=== PATIENT | female | born 1990 | race Caucasian/White ===

== ENCOUNTER 2024-11-19 18:28 | Emergency (ER) | payer BC, SELFPAY ==
[2024-11-19 18:34] VITALS: BP 121/81; PULSE 87; RESP 16; TEMP 37.3; O2SAT 98; BMI 21.3
--- NOTE | 2024-11-19 18:57 | ED.GENADULT ---
HPI - General Adult General Chief complaint: Abdominal Pain Stated complaint: gall bladder issues Time Seen by Provider: 11/19/24 18:29 History of Present Illness HPI narrative: [age] year white female who had an ultrasound today that showed gallbladder contraction, no stones normal common bile duct. This is from the report from her align cara PA. The patient had lab studies yesterday that looked unremarkable for any infection or liver function abnormality. Patient reports today she had some burning after ultrasound in her upper quadrant but that seems improved. She has had no nausea, vomiting, dysuria frequency. Chest pain or shortness of breath. She was told to consult with a general surgeon. Related Data Home Medications ?Medication ?Instructions ?Recorded ?Confirmed No Known Home Medications 11/19/24 11/19/24 Allergies Allergy/AdvReac Type Severity Reaction Status Date / Time No Known Drug Allergies Allergy Verified 11/19/24 18:33 Review of Systems Status of ROS: Reports: 6 or more systems reviewed and unremarkable except as noted in History and below Exam Narrative: Exam Narrative: Objective vital signs show temp 99.2? other vital signs unremarkable Alert orient x3 no distress HEENT shows no scleral icterus Abdomen is benign soft nontender no right upper quadrant tenderness no right lower quadrant tenderness no rebound or palpable masses in her abdomen. Extremities good motion, patient is ambulatory without difficulty. Const: Vital Signs, click to edit/add: Vital Signs - 24 hr 11/19/24 18:34 Temperature 99.2 F Pulse Rate [Pulse Oximeter] 87 Respiratory Rate 16 Blood Pressure [Ri ght Upper Arm] 121/81 Pulse Oximetry 98 Oxygen Delivery Me thod Room Air Course Vital Signs Vital signs: Initial Vital Signs Temperature 99.2 F 11/19/24 18:34 Temperature Source Temporal Artery Scan 11/19/24 18:34 Pulse Rate 87 11/19/24 18:34 Respiratory Rate 16 11/19/24 18:34 Blood Pressure 121/81 11/19/24 18:34 Blood Pressure Mean 94 11/19/24 18:34 Pulse Oximetry 98 11/19/24 18:34 Oxygen Delivery Method Room Air 11/19/24 18:34 Vital Signs Temperature 99.2 F 11/19/24 18:34 Pulse Rate 87 11/19/24 18:34 Respiratory Rate 16 11/19/24 18:34 Blood Pressure 121/81 11/19/24 18:34 Pulse Oximetry 98 11/19/24 18:34 Oxygen Delivery Method Room Air 11/19/24 18:34 Temperature 99.2 F 11/19/24 18:34 Pulse Rate 87 11/19/24 18:34 Respiratory Rate 16 11/19/24 18:34 Blood Pressure 121/81 11/19/24 18:34 Pulse Oximetry 98 11/19/24 18:34 Oxygen Delivery Method Room Air 11/19/24 18:34 Medical Decision Making MDM Narrative Medical decision making narrative: [age] year white female with a gallbladder ultrasound today did show some gallbladder contraction, no stones, normal common bile duct. Labs yesterday looked unremarkable for infection or liver function abnormality. This was reviewed through her align a chart on her phone with her consent. At this time I would recommend the following. I do not think additional lab studies necessary at this time given her benign abdomen. She should consult with General surgery in this will be set up for her. She can take Tylenol as needed for discomfort if this occurs. We will give her the number for our general surgery clinic here in [place]. If she has problems concerns in the interim she can return back to the hospital. And would be seen in the ER. She was comfortable this plan. Discharge Plan Discharge Clinical Impression: Abdominal pain Patient Disposition: Home, Self-Care Condition: Stable Additional Instructions: Light diet, low-fat, Tylenol as needed, general surgery consult recommended, you can call the clinic with your number that your given tonight. Return to ED as needed. Activity Level: No Restrictions Discharge Diet: Low Fat/Low Cholesterol Prescriptions: No Action No Known Home Medications Stand Alone Forms: [employer] Info Instructions
--- OUTSIDE RECORDS SUMMARY | 2024-11-19 19:11 | XMS_ITS | Clinical Summary ---
Author Organization [facility] Address [address] , [address] [place] [address] Phone Care Team Providers Care Exchange Operator Name Role [facility] Unavailable Unava ilable Conditions or Problems Problem Name Problem Code Onset Date Status Entry Date Provider Comment Standard Description Annotate Shoulder pain, left [id number] (SNOMED CT) 06/07 Active 06/07 Goldie Campeau Pain of left shoulder joint Shoulder pain [id number] (SNOMED CT) 06/07 Inactive 06/07 Jorge Chawla MD Pain of shoulder region Hand pain, left [id number] (SNOMED CT) 06/07 Active 06/07 Jorge Chawla MD Hand pain Medications No information available. Medications Administered No information available. Allergies, Adverse Reactions, Alerts No information available. Results Date Name Value Unit Range Flag Description Internal Other: Authorizatio n - OBS [email or web address] Yes Authoriza tion: Release of Information - Authorize [facility] - Payment and Healthcare Operations ROIAUTHOTHER Yes Authoriz ation: Release of Information - Authorize Others/Insurance - Payment and Healthcare Operations HIECONSENT Yes Consent To Release information to the Health Information Exchange (HIE) [email or web address] Yes Authorizat ion: Authorization for [facility] to leave messages, voicemail, send text messages, send emails AUTHRELHCARE Yes Authoriz ation: Release/Retrieval of Information to/from Healthcare Facilities, Pharmacy Benefit Payers and Providers [email or web address] Yes Authoriz ation: Notice of privacy practices AUTHBENEFIT Yes Authoriza tion: Assignment of Benefits and Payment Agreement Plan of Care No information available. Procedures Code Procedure Name Date Entry Date [id number] Nerve Conduction 7-8 studies CPT-38579 EMG with NCS (5+ muscles) - 1 limb 06/07 Vital Signs No information available. Immunizations No information available. Advance Directives No information available.
--- OUTSIDE RECORDS SUMMARY | 2024-11-19 19:12 | XMS_ITS | Clinical Summary ---
Author Organization [employer] [facility] Address [address] [place] [address] Care Team Providers Care Administrative Analyst Name Role Phone Irma Patel MD Primary Care Provider + Allergies Active Allergy Reactions Criticality Noted Date Comments Pineapple Edema 07/07/2014 Throat swelling, vomitng, diarrhea Medications LORazepam 0.5 mg tabIndications: Other mixed anxiety disorders Take 0.5-1 Tablets (0.25-0.5 mg) by mouth 2 times daily if needed for Anxiety. 30 Tablet 10/01/2024 Active omeprazole 20 mg tabletIndicatio ns:Abdominal pain, RUQ (right upper quadrant) Take 1 Tablet (20 mg) by mouth once daily before a meal. 60 Tablet 11/17/2024 Active Active Problems Problem Noted Date Diagnosed Date Family history of thyroid disease 09/07/2015 Anxiety disorder 01/14/2013 Allergic rhinitis, cause unspecified 03/28/2006 Overview (03/28/2006): Allergic to pollen & bob Resolved Problems Problem Noted Date Diagnosed Date Resolved Date Uses control 02/25/2013 8 Anemia due to acute blood loss 02/09/2011 03/30/2011 Arrest of dilation, delivere d, current hospitalization 02/06/2011 03/30/2011 delivery, without m ention of indication, unspecified as to episode of care(669.70) 02/06/2011 03/30/2011 Anemia of mother, complicati ng , childbirth, or the puerperium, unspecified as to episode of care(648.20) 12/28/2010 03/30/2011 Supervision of normal first 09/22/2010 03/30/2011 GERD (gastroesophageal reflux disease) 09/09/2009 03/30/2011 Encounters Date Type Department Care Team Description 11/19/2024 7:30 AM CDT Ancillary Procedure [facility] [address] [place] [address] Arrived 11/19/2024 Orders Only [facility] [address] [place] [address] Camelia Bryan PA <No scans attached> 11/18/2024 Travel 11/17/2024 12:50 PM CDT Office Visit [facility] [address] [place] [address] Camelia Bryan PA Abdominal Pain (Stomach burning and pain x 5 days, starts in the mid section and radiates to right side. Feels tightening. Happens after eating. Chills with burning. ) 11/17/2024 Travel from Last 3 Months Immunizations Immunization Administration Dates Next Due Human Papilloma Virus Vaccine 04/08/2007, 007,09/26/2006 INFLUENZA, IIV3 PF (AGE >= 6 MO) 01/29/2024 Influenza, IIV3 (Age >=3 years) 02/11/2017,01/16,01/28/2013,01/11/2011 Influenza, IIV4 03/16/2022,02/26/2016 Tdap 11/09/2021,02/08/2011 Family History Medical History Relation Name Comments Good Health Father Arthritis Maternal Grandfather Cancer Maternal Grandmother lung Hyperlipidemia Maternal Grandmother Arthritis Mother Bon Marroquin Unknown Mother Bon Marroquin MIGRAINE Arthritis Other 2nd cousin with rheumatoid arthritis Relation Name Status Comments Father Maternal Grandfather Maternal Grandmother Mother Bon Marroquin Other Social History Tobacco Use Types Packs/Day Years Used Date Smoking Tobacco: Never Smokeless Tobacco: Never Tobacco Cessation:Counseling Given: Yes Alcohol Use Standard Drinks/Week Comments No 0 (1 standard drink = 0.6 oz pur e alcohol) PHQ-2 Answer Date Recorded PHQ-2 TOTAL SCORE 0 11/17/2024 Exercise Vital Sign Answer Date Recorde d On average, how many days pe r week do you engage in moderate to strenuous exercise (like a brisk walk)? 4 days 01/21/2020 On average, how many minutes do you engage in exercise at this level? 30 min 01/21/2020 Social Connections Answer Date Recorded Do you often feel lonely or isolated from those around you? 0 01/25/2024 Financial Resource Strain Answer Date R ecorded Difficulty of Paying Living Expenses 3 01/25/2024 Difficulty of Paying Living Expenses Not on file 01/25/2024 Food Insecurity Answer Date Recorded Do you worry your food will run out before you are able to buy more? 1 01/25/2024 Transportation Needs Answer Date Record ed Does lack of transportation keep you from medica l appointments? 1 01/25/2024 Does lack of transportation keep you from work, meetings or getting things that you need? 1 01/25/2024 Housing Stability Answer Date Recorded What is your housing situation today? 1 01/25/2024 Utilities Answer Date Recorded Do you have trouble paying f or utilities (for example, heat, electricity, water, phone)? 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 Gender Identity Not on file Sexual Orientation Not on file Occupation Industry Job Start Date Job End Date [employer] Not on file Not on file Not on file Obstetrics History Para Term AB IAB SAB Ectopic Multiple Livin g Live Births 1 1 1 0 0 0 0 0 0 1 1 Date Outcome GA Total Labor Labor/2nd/3rd Weight Sex Type Anes PTL Sridevi A1 A5 Name Clin 2010 Term 39w 0d 3.81 kg (8 lb 6.5 oz) F CS-Un spec Epidur al N Livin g 8 9 Marques an Delivery Location:[facility] Comments:AOD at 6 cm Last Filed Vital Signs Vital Sign Reading Time Taken Comments Blood Pressure 114/60 11/17/2024 12:48 PM CDT Pulse 74 11/17/2024 12:48 PM CDT Temperature 36.8 C (98.2 F) 09/17/2018 3:53 PM CDT Respiratory Rate 12 04/29/2013 1:10 PM DINKEY MECHANIC Oxygen Saturation 99% 11/17/2024 12: 48 PM CDT Inhaled Oxygen Concentration - - Weight 57.6 kg (126 lb 14.4 oz) 025 12:48 PM CDT Height 163.8 cm (5' 4.5) 11/17/2024 12 :48 PM CDT Body Mass Index 21.45 11/17/2024 12:48 PM CDT Plan of Treatment Upcoming Encounters Date Type Department Care Team (Late st Contact Info) Description 02/16/2025 2:15 PM CDT Office Visit [facility] [address] [place] [address] Irma Patel MD [address] [place] [address] Health Maintenance Due Date Last Done Comments Hepatitis B series for 19+ (1 of 3 - 19+ 3-dose series) 07/26/2007 COVID-19 vaccine series ( - 2023- season) 2024 Influenza Vaccine (#1) 2025 4, 03/16/2022, 02/11/2017, Additional history exists Pap test for age 21-65 08/31/2025 1, 08/31/2020, 09/12/2017, Additional history exists BMI (ht and wt on same day) for age 18+ 11/17/2025 11/17/2024, 06/04/2023, 11/09/2021, Additional history exists Depression screening for age 12+ 11/17/2025 11/17/2024, 09/11/2022, 05/31/2022, Additional history exists Tetanus booster 11/10/2031 11/09/2021, 01/13, 06/06/2010 (Postponed) HIV for age 15-65 Completed 07/27/2010 Hepatitis C screening for age 18-79 Completed 12/03/2012 Pneumococcal series for age 6-49 Aged Out No longer eligible based on patient's age to complete this topic Procedures Procedure Name Priority Date/Time Associated Diagnosis Comments US ABDOMEN LIMITED GALLBLADDER Routine 11/19/2024 7:54 AM CDT Abdominal pain, RUQ (right upper quadrant) CBC WITH AUTO DIFFERENTIAL Routine 11/17/2024 1:15 PM CDT Abdominal pain, RUQ (right upper quadrant) COMP METABOLIC PANEL Routine 11/17/2024 1:15 PM CDT Abdominal pain, RUQ (right upper quadrant) CBC WITH AUTO DIFFERENTIAL Routine 11/17/2024 1:15 PM CDT Abdominal pain, RUQ (right upper quadrant) SENIOR BUSINESS ANALYST THIN PREP PAP SCREEN IMAGED Routine 08/31/2020 5:57 PM CDT Screening for malignant neoplasm of the cervix ANTI HCV Routine 12/03/2012 5:07 PM CDT Tattoo ANTI HIV 1/2 Routine 07/27/2010 4:21 PM CDT Supervision of normal first (HC) from Last 3 Months or Most Recently Relevant to Health Maintenance Results * US ABDOMEN LIMITED GALLBLADDER (11/19/2024 7:54 AM CDT) Anatomical Region Laterality Modality Abdomen Ultrasound 11/19/2024 4:17 PM CDT Impressions 11/19/2024 4:17 PM CDT The gallbladder is completely contracted despite NPO status for 12 hours. Remainder unremarkable. Findings suggest gallbladder dysfunction and surgical consultation recommended. Dictated by Yifan Simpson MD @ 11/19/2024 4:17:13 PM (Electronically Signed) Narrative 11/19/2024 4:17 PM CDT For Patients: As a result of the 21st Century Cures Act, medical imaging exams and procedure reports are released immediately into your electronic medical record. You may view this report before your referring provider. If you have questions, please contact your health care provider. INDICATION: Right upper quadrant abdominal pain COMPARISON: 05/10/2007 TECHNIQUE: Real time alejo scale imaging and color Doppler analysis was performed of the right upper quadrant. FINDINGS: The patient`s liver is of normal size and has uniform echogenicity. There is a normal appearance of the hepatic IVC and proximal abdominal aorta. There is no evidence of ascites. The gallbladder is contracted despite NPO status for 12 hours. The gallbladder wall measures 2 mm in thickness. The common bile duct is of normal size and measures 3 mm in diameter at the level of the justice hepatis. The pancreas appears normal. There is no evidence of a stone or hydronephrosis within the right kidney. The right kidney measures 10.0 cm in length. Procedure Note Yifan Simpson MD - 11/19/2024 For Patients: As a result of the Cures Act, medical imagingexams and procedure reports are released immediately into your electronicmedical record. You may view this report before your referring provider.If you have questions, please contact your health care provider. INDICATION: Right upper quadrant abdominal pain COMPARISON: 05/10/2007 TECHNIQUE: Real time alejo scale imaging and color Doppler analysis was performed ofthe right upper quadrant. FINDINGS: The patient`s liver is of normal size and has uniform echogenicity. Thereis a normal appearance of the hepatic IVC and proximal abdominal aorta.There is no evidence of ascites. The gallbladder is contracted despite NPOstatus for 12 hours. The gallbladder wall measures 2 mm in thickness. Thecommon bile duct is of normal size and measures 3 mm in diameter at thelevel of the justice hepatis. The pancreas appears normal. There is noevidence of a stone or hydronephrosis within the right kidney. The rightkidney measures 10.0 cm in length. IMPRESSION: The gallbladder is completely contracted despite NPO status for 12 hours.Remainder unremarkable. Findings suggest gallbladder dysfunction andsurgical consultation recommended. Dictated by Yifan Simpson MD @ 11/19/2024 4:17:13 PM (Electronically Signed) us Camelia MARIA US Final Res ult * (ABNORMAL) CBC WITH AUTO DIFFERENTIAL (11/17/2024 1:15 PM CDT) WHITE BLOOD CELL COUNT 7.4 3.8 - 10.8 Thousand/u L 11/18/2024 6:27 AM CDT [facility] RED BLOOD CELL COUNT 4.26 3.80 - 5.10 Million/uL 11/18/2024 6:27 AM CDT [facility] HEMOGLOBIN 12.5 11.7 - 15.5 g/dL 11/18/2024 6:27 AM CDT [facility] HEMATOCRIT 38.4 35.0 - 45.0 % 11/18/2024 6:27 AM CDT [facility] MCV 90.1 80.0 - 100.0 fL 11/18/2024 6:27 AM CDT [facility] MCH 29.3 27.0 - 33.0 pg 11/18/2024 6:27 AM CDT [facility] MCHC 32.6 32.0 - 36.0 g/dL 11/18/2024 6:27 AM CDT [facility] Comment: For adults, a slight decrease in the calculated MCHC value (in the range of 30 to 32 g/dL) is most likely not clinically significant; however, it should be interpreted with caution in correlation with other red cell parameters and the patient's clinical condition. RDW 12.5 11.0 - 15.0 % 11/18/2024 6:27 AM CDT [facility] PLATELET COUNT 477(H) 140 - 400 Thousand/u L 11/18/2024 6:27 AM CDT [facility] MPV 10.0 7.5 - 12.5 fL 11/18/2024 6:27 AM CDT [facility] NEUTROPHILS 63.1 % 11/18/2024 6:27 AM CDT [facility] LYMPHOCYTES 25.2 % 11/18/2024 6:27 AM CDT [facility] MONOCYTES 7.6 % 11/18/2024 6:27 AM CDT [facility] EOSINOPHILS 3.0 % 11/18/2024 6:27 AM CDT [facility] BASOPHILS 1.1 % 11/18/2024 6:27 AM CDT [facility] ABSOLUTE NEUTROPHILS 4669 1500 - 7800 cells/uL 11/18/2024 6:27 AM CDT [facility] ABSOLUTE LYMPHOCYTES 1865 850 - 3900 cells/uL 11/18/2024 6:27 AM CDT [facility] ABSOLUTE MONOCYTES 562 200 - 950 cells/uL 11/18/2024 6:27 AM CDT [facility] ABSOLUTE EOSINOPHILS 222 15 - 500 cells/uL 11/18/2024 6:27 AM CDT [facility] ABSOLUTE BASOPHILS 81 0 - 200 cells/uL 11/18/2024 6:27 AM CDT [facility] Blood BLOOD SPECIMEN / Unknown Non-Lab Venipuncture / Unknown 11/17/2024 1:15 PM CDT 11/17/2024 1:15 PM CDT Camelia MARIA HEMATOLOGY Final Res ult [facility] [address] [place] [address], * COMP METABOLIC PANEL (11/17/2024 1:15 PM CDT) SODIUM 137 135 - 146 mmol/L 11/18/2024 7:23 AM CDT [facility] POTASSIUM 4.5 3.5 - 5.3 mmol/L 11/18/2024 7:23 AM CDT [facility] CHLORIDE 99 98 - 110 mmol/L 11/18/2024 7:23 AM CDT [facility] CARBON DIOXIDE 29 20 - 32 mmol/L 11/18/2024 7:23 AM CDT [facility] GLUCOSE 73 65 - 99 mg/dL 11/18/2024 7:23 AM CDT [facility] Comment: Fasting reference interval CALCIUM 9.9 8.6 - 10.2 mg/dL 11/18/2024 7:23 AM CDT [facility] CREATININE 0.66 0.50 - 0.97 mg/dL 11/18/2024 7:23 AM CDT [facility] BUN/CREATININE RATIO SEE NOTE: 6 - 22 (calc) 11/18/2024 7:23 AM CDT [facility] Comment: Not Reported: BUN and Creatinine are within reference range. EGFR 117 > OR = 60 mL/min/1. 73m2 11/18/2024 7:23 AM CDT [facility] ALBUMIN 4.4 3.6 - 5.1 g/dL 11/18/2024 7:23 AM CDT [facility] PROTEIN, TOTAL 7.4 6.1 - 8.1 g/dL 11/18/2024 7:23 AM CDT [facility] BILIRUBIN, TOTAL 0.5 0.2 - 1.2 mg/dL 11/18/2024 7:23 AM CDT [facility] ALKALINE PHOSPHATASE 55 31 - 125 U/L 11/18/2024 7:23 AM CDT [facility] ALT 11 6 - 29 U/L 11/18/2024 7:23 AM CDT [facility] AST 16 10 - 30 U/L 11/18/2024 7:23 AM CDT [facility] UREA NITROGEN (BUN) 9 7 - 25 mg/dL 11/18/2024 7:23 AM CDT [facility] GLOBULIN 3.0 1.9 - 3.7 g/dL (calc) 11/18/2024 7:23 AM CDT [facility] ALBUMIN/GLOBULI N RATIO 1.5 1.0 - 2.5 (calc) 11/18/2024 7:23 AM CDT [facility] Blood BLOOD SPECIMEN / Unknown Non-Lab Venipuncture / Unknown 11/17/2024 1:15 PM CDT 11/17/2024 1:15 PM CDT Camelia MARIA CHEMISTRY Final Res ult [facility] [address] [address], * SENIOR BUSINESS ANALYST THIN PREP PAP SCREEN IMAGED (08/31/2020 5:57 PM CDT) Case Report Gynecologic Cytology Report Case: [id number] Authorizing Provider: Bailey Moreau Collected: 08/31/2020 Gisell Yee MD Ordering Location: [facility] Received: 08/31/[address] [place] [address] First Screen: Chris Rea Specimen: SENIOR BUSINESS ANALYST ThinPrep Vial Screening, Cervical 09/09/2020 12:43 PM CDT [facility] INTERPRETATION/ RESULT NEGATIVE FOR INTRAEPITHELIAL LESION OR MALIGNANCY (NIL) (none) 09/09/2020 12:43 PM CDT [facility] at 1243 CDT SPECIMEN ADEQUACY Satisfactory for evaluation Endocervical component present 09/09/2020 12:43 PM CDT [facility] HPV REQUEST HPV and PAP 09/09/2020 12:43 PM CDT [facility] Date of LMP 08/24/20 09/09/2020 12:43 PM CDT [facility] Last Pap Date 09/12/17 09/09/2020 12:43 PM CDT [facility] Last Pap Result NIL 12:43 PM CDT [facility] Abnormal Pap or Morgan Bx in last 5 years No 09/09/2020 12:43 PM CDT [facility] Menstrual Status Regular Periods 09/09/2020 12:43 PM CDT [facility] Morgan Bx Done Today No 09/09/2020 12:43 PM CDT [facility] Additional Information None given 09/09/2020 12:43 PM CDT [facility] Comment: Cytology is screened at [facility] Laboratory - [address], [place] [address] and [facility] - [address] [place] [address] and [facility] - [address] [place] [address] Interpreted at [facility] - [address], [place] [address] Automated Review Successful 09/09/2020 12:43 PM CDT [facility] Comment:Specimen processed s uccessfully by automated warehouse driver device, ThinPrep Imaging System, [employer] ANCILLARY TESTING SENIOR BUSINESS ANALYST HPV Ordered, Please see separate report 09/09/2020 12:43 PM CDT [facility] Note The pap test is a screening technique, not a diagnostic procedure. It is used primarily to screen for squamous cancers and precursor lesions. Published studies have shown that it is subject to both false negative and false positive results. The pap test should not be used as the sole means to diagnose or exclude pre-malignant and malignant lesions. 09/09/2020 12:43 PM CDT [facility] Other (Cervical) Non-Blood / Unknown 08/31/2020 5:57 PM CDT 08/31/2020 5:58 PM CDT us Bailey Moreau MD PATHOLOGY/CYTO LOGY Final Result [facility] [address] [place] [address], [place] * ANTI HCV (12/03/2012 5:07 PM CDT) ANTI HCV Non-reacti ve [facility] Blood specimen (specimen) BLOOD SPECIMEN / Unknown 12/03/2012 5:07 PM CDT 12/03/2012 4:49 PM CDT us Bailey Moreau MD SEND OUTS Final Result [facility] [place]NAL ZIP [id number] [place] [address] * ANTI HIV 1/2 (07/27/2010 4:21 PM CDT) ANTI HIV 1/2 Non-reacti ve [facility] Blood specimen (specimen) BLOOD SPECIMEN / Unknown 07/27/2010 4:21 PM CDT 07/27/2010 4:13 PM CDT Bailey Moreau MD SEND OUTS Final Result [facility] INTERNAL ZIP [id number] [address] from Last 3 Months or Most Recently Relevant to Health Maintenance Insurance [facility] Advance Directives * Full Code (Latest Code Status on File) Date Activated Date Inactivated Comments 02/05/2011 5:22 PM 02/06/2011 5:02 AM * Full Code Date Activated Date Inactivated Comments 02/05/2011 4:10 PM 02/05/2011 5:22 PM * Full Code Date Activated Date Inactivated Comments 02/04/2011 11:46 PM 02/05/2011 8:57 AM * Full Code Date Activated Date Inactivated Comments 02/04/2011 9:21 PM 02/04/2011 11:46 PM Care Teams Administrative Analyst Relationship Specialty Start Date End Date Irma Patel MD [address] [place] [address] PCP - General Family Practice 08/31/23
== END 2024-11-19 19:16 | disposition home or self-care (01) ==
LOC: ED 19:10
PROVIDERS: Emergency Provider Family Medicine
DX: R10.9 Unspecified abdominal pain (principal)
CPT/HCPCS: 99283